=== PATIENT | male | born 1945 | race Caucasian/White ===

== ENCOUNTER 2019-06-26 11:20 | Emergency (ER) | payer MEDICARE, OTHER, SELFPAY ==
[2019-06-26 11:25] VITALS: BP 158/78; PULSE 54; RESP 13; TEMP 36.8; O2SAT 99; BMI 27.1
[2019-06-26 11:27] VITALS: BP 158/78; PULSE 54; RESP 13; TEMP 36.8; O2SAT 99
--- NOTE | 2019-06-26 11:27 | DI.ECHO.S_ITS ---
[facility] +---------+ : : [address] : : : : [id number] : : : : Phone: [phone]+ Echocardiogram Report + + :Name: CARMELA CHRISTIANSEN Study Date: 06/26/2019 Height: 69 in : :[facility] Exam Location: [facility] Weight: 184 lb : : Gender: Male BSA: 2.0 m2 : :: 1945 Age: 74 yrs BP: 161/67 mmHg: :Reason For Study: MN : : Performed By: Issac Mcgovern : :Referring: MARISA JOHNSTON : + + Interpretation Summary The left ventricle is normal in size. The ejection fraction is estimated to be 60-65%. There are no focal wall motion abnormalities. There has been no significant change since the previous study. The right ventricle is normal in size and function. There is mild to moderate aortic regurgitation. Compared to the prior echo study, there has been an increase in the severity of aortic regurgitation. Procedure: A two-dimensional transthoracic echocardiogram with color flow and Doppler was performed. The study quality was technically adequate. Comparison is made with the echocardiogram of 08/31/14. The patient was in sinus bradycardia with heart rates between 50-55 bpm during the exam. Left Ventricle: The left ventricle is normal in size. There is normal left ventricular wall thickness. There is no thrombus. The ejection fraction is estimated to be 60-65%. There has been no significant change since the previous study. There are no focal wall motion abnormalities. Diastolic parameters suggest a relaxation abnormality of the left ventricle, consistent with probable normal filling pressures. Right Ventricle: The right ventricle is normal in size and function. Atria: Both atria are mildly dilated. Both atria have remained unchanged in size since the prior echo exam. The interatrial septum is intact with no evidence for an atrial septal defect. Mitral Valve: The mitral valve is normal in structure and function. There is systolic anterior motion of the chordal apparatus. There is mild mitral regurgitation. Aortic Valve: The aortic valve is trileaflet. The aortic valve opens well. There is mild to moderate aortic regurgitation. Compared to the prior echo study, there has been an increase in the severity of aortic regurgitation. Tricuspid Valve: The tricuspid valve is normal in structure and function. Pulmonary artery pressures cannot be estimated because of the lack of a measurable TR jet velocity. There is trace tricuspid regurgitation. Pulmonic Valve: The pulmonic valve is normal in structure and function. There is trace pulmonic regurgitation. Great Vessels: The aortic root is normal size. The dimensions of the ascending aorta are normal. The pulmonary artery is normal size. The IVC is of normal diameter and collapses greater than 50% with a sniff. This suggests a low right atrial pressure of 3 mm Hg. Pericardium/ Pleura There is no pericardial effusion. There is no pleural effusion. MMode/2D Measurements & Calculations LVIDd: 5.1 cm LVOT diam: 2.1 cm LVIDs: 2.9 cm Ao root diam: 3.3 cm FS: 43.2 % Aortic Jxn: 2.8 cm EPSS: 0.86 cm asc Aorta Diam: 3.3 cm IVSd: 1.1 cm Ao Arch Diam (Prox Trans): 2.6 cm LVPWd: 1.0 cm LV moise. diameter/BSA (cm/m^2): 2.5 LV sys. diameter/BSA (cm/m^2): 1.4 LA dimension: 4.7 cm RA long axis: 5.0 cm LA A2 area: 21.4 cm2 RA area: 21.7 cm2 LA A4 area: 25.6 cm2 RA vol: 79.5 ml LA length (vol): 6.5 cm RA : 39.9 ml/m2 LA vol: 71.2 ml IVC diam: 1.3 cm LA vol index: 35.7 ml/m2 RVD1 (basal): 3.7 cm RVD2 (mid): 3.6 cm Doppler Measurements & Calculations Ao V2 max: 147.8 cm/sec LVOT Max Al: 116.4 cm/sec Ao V2 mean: 90.9 cm/sec LV V1 max P.4 mmHg Ao max P.7 mmHg LV V1 VTI: 26.0 cm Ao mean P.7 mmHg FERNANDO(I,D): 3.0 cm2 Ao V2 VTI: 29.3 cm FERNANDO(V,D): 2.6 cm2 sev ratio: 0.89 FERNANDO indexed to BSA (cm^2/m^2): 1.5 AI P1/2t: 795.5 msec AI dec slope: 159.2 cm/sec2 MV E max al: 62.6 cm/sec PA V2 max: 81.0 cm/sec MV A max al: 70.5 cm/sec PA V2 mean: 61.3 cm/sec MV E/A: 0.89 PA mean P.6 mmHg Med Peak E' Al: 5.3 cm/sec PA pr(Accel): 39.1 mmHg E/E' med: 11.9 PA Accel Time: 0.07 sec Lat Peak E' Al: 7.0 cm/sec E/E' lat: 8.9 E/e' average: 10.4 MV dec time: 0.20 sec SV([facility]): 87.3 ml Reading Physician:01:01 PM
--- NOTE | 2019-06-26 11:29 | ED_ITS ---
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 Patient states he just felt very fatigued and tired and slept the entire day. He noted he had a little bit of epigastric discomfort for the last couple days. As well as some discomfort in between his scapula in his back. He states it is not present today. Patient states that he had similar symptoms a couple years ago had multiple workups then eventually his heart attack. After he was treated for his heart attack though symptoms resolved. He denies any shortness of breath, he denies any chest pr essure. He denies any pain or discomfort down his arms or into his neck. He states symptoms do not change with. He did feel nauseated last day, he did get a little diaphoretic. He denies any emesis. He did feel lightheaded. He tried an oxycodone E left over from a prior surgery symptoms went away for an hour and then came back. 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 Related Data Home Medications Medication Instructions Recorded Confirmed citalopram 20 mg PO DAILY 06/26/19 metoprolol tartrate 12.5 mg PO BID 06/26/19 06/26/19 rosuvastatin 40 mg PO DAILY 06/26/19 06/26/19 Allergies Allergy/AdvReac Type Severity Reaction Status Date / Time Sulfa (Sulfonamide Allergy Unknown Verified 06/26/19 11:31 Antibiotics) Review of Systems Review of Systems ROS Unobtainable: All systems reviewed & are unremarkable except as noted in HPI and below Constitutional Constitutional: Reports anorexia, Denies chills, Denies fever(s), Denies lethargy and Denies weakness Cardiovascular Cardiovascular: Denies chest pain, Reports diaphoresis, Denies syncope, Denies pedal edema, Denies irregular heart rhythm, Denies lightheadedness, Denies radiating jaw, neck or arm pain (midscapular discomfrot), Denies palpitations, Denies dyspnea, Denies dyspnea on exertion and Denies orthopnea Respiratory Respiratory: Denies change in phlegm color, Denies chest congestion, Denies cough, Denies dyspnea, Denies dyspnea on exertion and Denies wheezing Gastrointestinal Gastrointestinal: Denies abdominal pain, Denies melena, Denies hematochezia, Denies change in bowel habits, Denies constipation, Denies diarrhea, Reports nausea (yesterday) and Denies vomiting Genitourinary Genitourinary: Denies hematuria, Denies flank pain, Denies urinary frequency, Denies urinary incontinence and Denies urinary urgency Musculoskeletal Musculoskeletal: Reports back pain (not present now.) Integumentary/Breasts Skin/Breast: Denies rash Neurologic Neurologic: Denies syncope and Denies weakness Endocrine Endocrine: Denies palpitations Allergic/Immunologic Allergic/Immunologic: Denies wheezing [facility] Social History (Updated 06/26/19 @ 11:44 by Wanda Damon DO) Smoking Status: Never smoker substance use type: does not use Social History (Updated 06/26/19 @ 11:44 by Wanda Damon DO) Smoking Status: Never smoker substance use type: does not use Exam Narrative Exam Narrative: GENERAL: Alert and oriented x three, well-nourished, well- appearing male in no acute distress. HEENT: Head normocephalic, atraumatic, EOMI, pupils reactive, face symmetric, moist mucous membranes NECK: Supple, full range of motion CARDIOVASCULAR: Regular rate and rhythm without murmurs, rubs or gallops. None reproducible chest pain. RESPIRATORY: Breath sounds equal bilaterally, no wheezes rales or rhonchi. ABDOMEN: Soft, nontender. Normoactive bowel sounds all 4 quadrants. No guarding or rebound, rigidity, no mass : No CVA tenderness EXTREMITIES: Normal range of motion, no clubbing or edema. 2+ pulses bilateral lower extremities. Neurovascularly intact NEUROLOGICAL: Cranial nerves II through XII grossly intact. Moving all extremities SKIN: Warm, dry, no petechiae, no rashes or lesions. Initial Vital Signs Initial Vital Signs: Vital Signs Temperature 98.3 F 06/26/19 11:25 Pulse Rate 54 L 06/26/19 11:25 Respiratory Rate 13 06/26/19 11:25 Blood Pressure 158/78 H 06/26/19 11:25 Pulse Oximetry 99 06/26/19 11:25 Scores HEART Score Heart Score history: Highly Suspicious Heart Score EKG: Non-Specific repolarization disturbance Heart Score Age: > or = 65 years old Heart Score risk factors: > 3 risk factors or hx of atherosclerotic disease Course Orders Ordered: ED Orders 06/26/19 11:23 EKG-12 Lead Stat 06/26/19 11:27 EC echo doppler complete Stat XR chest 1V Stat 06/26/19 11:35 B Type Natriuretic Peptide Stat Complete Blood Count AUTO DIFF Stat Comprehensive Metabolic Panel Stat Lipase Stat Partial Thromboplastin Time Stat Prothrombin Time INR Stat Troponin & CK Cardiac Panel Stat 06/26/19 13:01 CT angio chest abdomen pelvis Stat 06/26/19 13:24 Urine Microscopic Stat Discontinued Medications Aspirin (Aspirin Chew) 324 mg PO NOW ONE Stop: 06/26/19 11:28 Last Admin: 06/26/19 11:55 Dose: 324 mg Documented by: SJ Sodium Chloride (Normal Saline 0.9%) 1,000 mls @ 150 mls/hr IV CONT LORE Last Infusion: 06/26/19 15:05 Dose: 0 mls/hr Documented by: Admin: 06/26/19 11:54 Dose: 150 mls/hr Documented by: SJ Vital Signs Vital signs: Vital Signs - 8 hr 06/26/19 11:25 06/26/19 11:27 06/26/19 12:33 Temperature 98.3 F 98.3 F Pulse Rate 54 L 54 L 52 L Respiratory Rate 13 13 13 Blood Pressure 158/78 H Blood Pressure [Right Arm] 158/78 H 148/70 H Pulse Oximetry 99 99 97 06/26/19 14:23 06/26/19 14:52 Temperature Pulse Rate 50 L 47 L Respiratory Rate 15 12 Blood Pressure Blood Pressure [Right Arm] 151/70 H 142/72 H Pulse Oximetry 98 97 MDM - Chest Pain Lab Data Attestation: I reviewed the patient's lab results. Result diagrams: 06/26/19 11:35 06/26/19 11:35 Labs: Lab Results 06/26/19 06/26/19 06/26/19 Range/Units 11:35 11:35 11:35 WBC 8.7 (4.5-11.0) X10^3/uL RBC 4.89 (4.5-5.9) X10^6/uL Hgb 14.3 (13.5-17.5) g/dL Hct 40.9 L (41-53) % MCV 83.8 (80-100) fL MCH 29.2 (26-34) PG MCHC 34.9 (30-36) % RDW 13.5 (11.6-14.8) % Plt Count 190 (150-400) X10^3/uL Neut % (Auto) 74.4 (50-75) % Lymph % (Auto) 14.3 L (25-40) % Barren % (Auto) 10.0 (3-14) % Eos % (Auto) 0.6 L (2-4) % Baso % (Auto) 0.7 (0-2) % Neut # (Auto) 6500 (9420-6418) /uL Lymph # (Auto) 1200 (9269-3864) /uL Barren # (Auto) 900 (0-900) /uL Eos # (Auto) 100 (0-450) /uL Baso # (Auto) 100 (0-100) /uL PT 12.8 H (10.1-12.7) SECONDS INR 1.1 (0.9-1.3) APTT 31 (26.4-36.2) SECONDS Sodium 141 (137-145) mmol/L Potassium 4.2 (3.4-5.1) mmol/L Chloride 103 (98-107) mmol/L Carbon Dioxide 29 (22-32) mmol/L BUN 15 (9-20) mg/dL Creatinine 0.70 (0.66-1.25) mg/dL Estimated GFR > 60.0 (>60) mL/min BUN/Creatinine Ratio 21.4 (6-22) Glucose 101 (80-110) mg/dL Calcium 9.2 (8.4-10.2) mg/dL Total Bilirubin 0.8 (0.2-1.3) mg/dL AST 23 (17-59) IU/L ALT < 6 L (21-72) IU/L Alkaline Phosphatase 66 (38-126) U/L Total Creatine Kinase 46 L (55-170) U/L CK-MB (CK-2) TNP CK-MB (CK-2) Rel Index TNP Troponin I < 0.012 (0.01-0.034) ng/mL B-Natriuretic Peptide 176 H (<100) Total Protein 7.9 (6.3-8.2) g/dL Albumin 4.4 (3.5-5.0) g/dL Globulin 3.5 (1.7-4.1) g/dL Albumin/Globulin Ratio 1.3 (1.0-2.8) Lipase 75 (23-300) U/L Urine RBC (0-5/HPF) Urine WBC (0-5/HPF) Urine Bacteria (None) Urine Mucus (Negative) Ur Culture Indicated? 06/26/19 Range/Units 13:24 WBC (4.5-11.0) X10^3/uL RBC (4.5-5.9) X10^6/uL Hgb (13.5-17.5) g/dL Hct (41-53) % MCV (80-100) fL MCH (26-34) PG MCHC (30-36) % RDW (11.6-14.8) % Plt Count (150-400) X10^3/uL Neut % (Auto) (50-75) % Lymph % (Auto) (25-40) % Barren % (Auto) (3-14) % Eos % (Auto) (2-4) % Baso % (Auto) (0-2) % Neut # (Auto) (0101-2930) /uL Lymph # (Auto) (0565-0048) /uL Barren # (Auto) (0-900) /uL Eos # (Auto) (0-450) /uL Baso # (Auto) (0-100) /uL PT (10.1-12.7) SECONDS INR (0.9-1.3) APTT (26.4-36.2) SECONDS Sodium (137-145) mmol/L Potassium (3.4-5.1) mmol/L Chloride (98-107) mmol/L Carbon Dioxide (22-32) mmol/L BUN (9-20) mg/dL Creatinine (0.66-1.25) mg/dL Estimated GFR (>60) mL/min BUN/Creatinine Ratio (6-22) Glucose (80-110) mg/dL Calcium (8.4-10.2) mg/dL Total Bilirubin (0.2-1.3) mg/dL AST (17-59) IU/L ALT (21-72) IU/L Alkaline Phosphatase (38-126) U/L Total Creatine Kinase (55-170) U/L CK-MB (CK-2) CK-MB (CK-2) Rel Index Troponin I (0.01-0.034) ng/mL B-Natriuretic Peptide (<100) Total Protein (6.3-8.2) g/dL Albumin (3.5-5.0) g/dL Globulin (1.7-4.1) g/dL Albumin/Globulin Ratio (1.0-2.8) Lipase (23-300) U/L Urine RBC 1-5/hpf (0-5/HPF) Urine WBC 0-1/hpf (0-5/HPF) Urine Bacteria Few (2-10) H (None) Urine Mucus 1+ H (Negative) Ur Culture Indicated? Cult not indicated Urine Dip Bedside Urine Glucose Negative Bedside Urine Bilirubin - Negative Bedside Urine Ketone - Negative Urine Specific [place] 1.020 Bedside Urine Occult Blood ++ Bedside Urine pH 5.5 Bedside Urine Protein +/- 15 Bedside Urine Urobilinogen - Negative Bedside Urine Nitrite - Negative Bedside Urine Leukocytes - Negative Esterase Imaging Data Chest x-ray: Radiologist's impression: [address] [address] XRay Report Signed Patient: Ross Adler#: [id number] : 6Acct:[id number] Age/Sex: 74 / MDate of Service: 06/26/19 Loc: ED Accession Number: [id number] Procedure: XR chest 1V Ordering Provider: Wanda Damon D.O. PROCEDURE: XR CHEST 1V INDICATIONS: chest pain last night TECHNIQUE: One view of the chest was acquired. COMPARISON: [facility], , XR CHEST 1VW (PORTABLE), 05/19/2016, 20:55. FINDINGS: Surgical changes and devices: None. Lungs and pleura: Lungs are clear. No pleural effusions or pneumothorax. Mediastinum: Mediastinal contours appear normal. Heart size is normal. There is aortic atherosclerosis. Bones and chest wall: No suspicious bony lesions. Overlying soft tissues appear unremarkable. IMPRESSION: Stable chest. No acute cardiopulmonary process is evident. Dictated by: Brendan Fernandez M.D. on 06/26/2019 at 10:52 Approved by: Brendan Fernandez M.D. on 06/26/2019 at 10:53 chest/abd/pelvis angio: Radiologist's impression: [address] [address] [address] Scan Report Signed Patient: Ross Adler#: [id number] : 6Acct:[id number] Age/Sex: 74 / MDate of Service: 06/26/19 Loc: ED Accession Number: [id number] Procedure: CT angio chest abdomen pelvis Ordering Provider: Wanda Damon D.O. PROCEDURE: CT ANGIO CHEST ABDOMEN PELVIS INDICATIONS: epigastric/scapular pain TECHNIQUE: Precontrast 5 mm thick sections acquired from the lung apices to the iliac crests. After the administration of intravenous contrast, 2.5 mm thick sections again acquired from the lung apices to the iliac crests. Maximum intensity projection (MIP) oblique sagittal and coronal reformats were then acquired. For radiation dose reduction, the following was used: automated exposure control. COMPARISON: None. FINDINGS: Image quality: Diagnostic. Arteries: The thoracic and abdominal aorta is normal in course and caliber. There is mild atherosclerosis of the thoracic and abdominal aorta. There is no evidence of aneurysm or dissection. No periaortic hematoma is evident. The arch vessels of the thoracic aorta are widely patent and otherwise unremarkable. The celiac artery, superior mesenteric artery, bilateral renal arteries, and inferior mesenteric artery are all widely patent. However, moderate atherosclerosis with approximately 50% n arrowing involving the lumen of the right renal artery is evident. The bilateral common iliac arteries, internal iliac arteries, and external iliac arteries are widely patent. The imaged portions of the common femoral arteries, superficial femoral arteries, and profunda femoral arteries are patent and otherwise unremarkable. CHEST: Lungs and pleura: No acute airspace opacities. No pleural effusions or pneumothorax. Central and peripheral airways are patent and normal in caliber. No lung masses or definite pulmonary nodules are evident. Mediastinum: Heart size is normal. No pericardial effusion. No mediastinal or hilar adenopathy by size criteria. Central pulmonary arteries are normal in size. No intraluminal filling defects are evident within it the major pulmonary arteries to suggest a large pulmonary embolism. Esophagus is normal in caliber. No hiatal hernias. Bones and chest wall: No axillary adenopathy by size criteria. Thyroid gland is not enlarged or adequately evaluated. No suspicious bony lesions. No vertebral body compression fractures. Mild to moderate degenerative changes of the thoracic spine are present. ABDOMEN: Solid organs: Liver is normal in size and enhancement. Gallbladder is small in size, but otherwise unremarkable. Biliary system is non dilated. Pancreas enhances normally. Spleen is normal in size and enhancement. No adrenal nodules. Both kidneys are normal in size and enhancement, without hydronephrosis. A simple appearing cyst is evident arising from the medial aspect of the mid right kidney. Peritoneum and bowel: No free fluid or air. Bowel loops are normal in caliber and wall thickness. There may be areas of colonic diverticulosis. However, no surrounding inflammation is evident to suggest diverticulitis. What is felt to represent the appendix is normal in size. Nodes and vessels: No retroperitoneal or mesenteric adenopathy by size criteria. Inferior vena cava is normal in morphology. Bones: No acute fracture suspicious osseous lesion is evident. Moderate to severe multilevel degenerative changes of the lumbar spine are more prominent involving the lower lumbar levels. PELVIS: Genitourinary: Thickening of the urinary bladder wall is present. There is no significant enlargement of the prostate gland. Miscellaneous: No pelvic adenopathy is evident. Small bilateral fat containing hernias appear to be present. No ventral hernias. No free fluid or loculated fluid collection is identified. Bones: No suspicious bony lesions. No acute pelvic fractures are identified. Moderate to severe degenerative changes of the pelvic joints are present. IMPRESSION: 1. Mild aortic atherosclerosis without evidence of aneurysm, dissection, high- grade narrowing, or vascular malformation. The major branch vessels of the aorta are widely. 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 2. No acute cardiopulmonary process is evident. 3. No bowel obstruction. 4. Right renal cyst. 5. Small bilateral fat containing inguinal hernias. 6. Prominent degenerative changes of the lumbosacral spine and pelvis. Dictated by: Brendan Fernandez M.D. on 06/26/2019 at 12:59 Approved by: Brendan Fernandez M.D. on 06/26/2019 at 13:12 ECG Data Attestation: I personally reviewed and interpreted this ECG as follows: Prior ECG tracings: available for review Interpretation: Sinus bradycardia, rate of 54 P are 201 QRS of 108 QTC of 432. No ST elevation or depression noted. Patient denies Q-wave in 3 and AVF. Patient has prior from 10/17/14 that appears similar. [facility] Narrative Medical decision making narrative: Patient's symptoms have resolved at this time, he is slightly hypertensive. He normally takes aspirin at night with 324 mg aspirin was ordered this morning. Dr. Stone saw the patient in office this morning and sent here, he reviewed his earlier EKG in the clinic and it was similar to priors with no new changes and I do not appreciate any either. Dr. Stone would like to get troponin cardiac enzymes and echo today, if all negative he would recommend patient to be set up for outpatient stress testing on Saturday which he would be responsible for. If positive plan for transfer to [facility]. Patient's labs do not show any major abnormalities including a negative troponin, negative CK-MB, chest x-ray does not show acute findings the patient's EKG appears similar to prior. He is currently asymptomatic. ECHO was read by Dr. Stone, no acute changes that are concerning. He requests CT to evaluate for dissection which is negative, incidental findings discussed with patient. Dr. Stone has patient scheduled for stress testing on Saturday. Patient to hold BB for 24 hours prior to stress test. Discharge Plan Departure Patient Disposition: Home Clinical Impression: Atypical chest pain Discharge Date/Time: 06/26/19 15:09 Instructions: DI for Atypical Chest Pain Activity Restrictions/Additional Instructions: Follow up Saturday, Dr. Stone is scheduling for stress testing on Saturday. Call this afternoon to verify your time and the location. Dr. Stone asks that you hold your beta roberto or metoprolol for 24 hours prior to your stress test. Continue your home medications as prescribed. There is 50% narrowing of your right renal artery, discuss this with your phys ician. There is a simple cyst on your right kidney, arthritic changes in your back and pelvis and small inguinal hernia's. Return to the emergency department for new or worsening symptoms, recurrent chest pain, shortness of breath, lightheadedness, passing out, nausea or vomiting, persistent sweatiness or clamminess or other new or concerning symptoms. Prescriptions: No Action citalopram 20 mg tablet 20 mg PO DAILY RF: 0 rosuvastatin 40 mg tablet 40 mg PO DAILY RF: 0 metoprolol tartrate 25 mg tablet 12.5 mg PO BID RF: 0 Referrals: Ratna Stone MD [Physician] -
[2019-06-26 11:45] LABS: Add Manual Diff / Slide Review NO; Basophils Absolute Auto 100 /uL (0-100); Basophils Percent Auto 0.7 % (0-2); Eosinophils Absolute Auto 100 /uL (0-450); Eosinophils Percent Auto 0.6 % (2-4); Hematocrit 40.9 % (41-53); Hemoglobin 14.3 g/dL (13.5-17.5); Lymphocytes Absolute Auto 1200 /uL (1100-4500); Lymphocytes Percent Auto 14.3 % (25-40); Mean Corpuscular HGB Conc 34.9 % (30-36); Mean Corpuscular Hemoglobin 29.2 PG (26-34); Mean Corpuscular Volume 83.8 fL (80-100); Monocytes Absolute Auto 900 /uL (0-900); Neutrophils Absolute Auto 6500 /uL (1500-7000); Neutrophils Percent Auto 74.4 % (50-75); Platelet Count 190 X10^3/uL (150-400); Red Blood Cell Count 4.89 X10^6/uL (4.5-5.9); Red Cell Distribution Width 13.5 % (11.6-14.8); White Blood Cell Count 8.7 X10^3/uL (4.5-11.0)
[2019-06-26 11:50] LABS: INR 1.1 (0.9-1.3); Prothrombin Time 12.8 SECONDS (10.1-12.7)
[2019-06-26 11:53] LABS: Albumin 4.4 g/dL (3.5-5.0); Albumin Globulin Ratio 1.3 (1.0-2.8); Alkaline Phosphatase 66 U/L (38-126); Aspartate Aminotransferase 23 IU/L (17-59); BUN Creatinine Ratio 21.4 (6-22); Bilirubin Total 0.8 mg/dL (0.2-1.3); Blood Urea Nitrogen 15 mg/dL (9-20); Calcium 9.2 mg/dL (8.4-10.2); Carbon Dioxide 29 mmol/L (22-32); Chloride 103 mmol/L (98-107); Creatine Kinase 46 U/L (55-170); Estimated Glomerular Filt Rate > 60.0 mL/min (>60); Globulin 3.5 g/dL (1.7-4.1); Glucose 101 mg/dL (80-110); Lipase 75 U/L (23-300); PTT Partial Thromboplastin Tim 31 SECONDS (26.4-36.2); Potassium 4.2 mmol/L (3.4-5.1); Sodium 141 mmol/L (137-145); Total Protein 7.9 g/dL (6.3-8.2)
[2019-06-26] MEDS: SODIUM CHLORIDE 0.9% 1,000 ML 150 ML IV (11:54)
[2019-06-26] MEDS: ASPIRIN 81 MG CHEW TAB 324 MG PO (11:55)
[2019-06-26 12:05] LABS: Alanine Aminotransferase < 6 IU/L (21-72); HEMOLYSIS 36 (0-50); Troponin I < 0.012 ng/mL (0.01-0.034)
[2019-06-26 12:07] LABS: B Type Natriuretic Peptide 176 (<100)
[2019-06-26 12:33] VITALS: BP 148/70; PULSE 52; RESP 13; O2SAT 97
--- NOTE | 2019-06-26 13:01 | DI.CT.S_ITS ---
PROCEDURE: CT ANGIO CHEST ABDOMEN PELVIS INDICATIONS: epigastric/scapular pain TECHNIQUE: Precontrast 5 mm thick sections acquired from the lung apices to the iliac crests. After the administration of intravenous contrast, 2.5 mm thick sections again acquired from the lung apices to the iliac crests. Maximum intensity projection (MIP) oblique sagittal and coronal reformats were then acquired. For radiation dose reduction, the following was used: automated exposure control. COMPARISON: None. FINDINGS: Image quality: Diagnostic. Arteries: The thoracic and abdominal aorta is normal in course and caliber. There is mild atherosclerosis of the thoracic and abdominal aorta. There is no evidence of aneurysm or dissection. No periaortic hematoma is evident. The arch vessels of the thoracic aorta are widely patent and otherwise unremarkable. The celiac artery, superior mesenteric artery, bilateral renal arteries, and inferior mesenteric artery are all widely patent. However, moderate atherosclerosis with approximately 50% narrowing involving the lumen of the right renal artery is evident. The bilateral common iliac arteries, internal iliac arteries, and external iliac arteries are widely patent. The imaged portions of the common femoral arteries, superficial femoral arteries, and profunda femoral arteries are patent and otherwise unremarkable. CHEST: Lungs and pleura: No acute airspace opacities. No pleural effusions or pneumothorax. Central and peripheral airways are patent and normal in caliber. No lung masses or definite pulmonary nodules are evident. Mediastinum: Heart size is normal. No pericardial effusion. No mediastinal or hilar adenopathy by size criteria. Central pulmonary arteries are normal in size. No intraluminal filling defects are evident within it the major pulmonary arteries to suggest a large pulmonary embolism. Esophagus is normal in caliber. No hiatal hernias. Bones and chest wall: No axillary adenopathy by size criteria. Thyroid gland is not enlarged or adequately evaluated. No suspicious bony lesions. No vertebral body compression fractures. Mild to moderate degenerative changes of the thoracic spine are present. ABDOMEN: Solid organs: Liver is normal in size and enhancement. Gallbladder is small in size, but otherwise unremarkable. Biliary system is non dilated. Pancreas enhances normally. Spleen is normal in size and enhancement. No adrenal nodules. Both kidneys are normal in size and enhancement, without hydronephrosis. A simple appearing cyst is evident arising from the medial aspect of the mid right kidney. Peritoneum and bowel: No free fluid or air. Bowel loops are normal in caliber and wall thickness. There may be areas of colonic diverticulosis. However, no surrounding inflammation is evident to suggest diverticulitis. What is felt to represent the appendix is normal in size. Nodes and vessels: No retroperitoneal or mesenteric adenopathy by size criteria. Inferior vena cava is normal in morphology. Bones: No acute fracture suspicious osseous lesion is evident. Moderate to severe multilevel degenerative changes of the lumbar spine are more prominent involving the lower lumbar levels. PELVIS: Genitourinary: Thickening of the urinary bladder wall is present. There is no significant enlargement of the prostate gland. Miscellaneous: No pelvic adenopathy is evident. Small bilateral fat containing hernias appear to be present. No ventral hernias. No free fluid or loculated fluid collection is identified. Bones: No suspicious bony lesions. No acute pelvic fractures are identified. Moderate to severe degenerative changes of the pelvic joints are present. IMPRESSION: 1. Mild aortic atherosclerosis without evidence of aneurysm, dissection, high-grade narrowing, or vascular malformation. The major branch vessels of the aorta are widely. 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 2. No acute cardiopulmonary process is evident. 3. No bowel obstruction. 4. Right renal cyst. 5. Small bilateral fat containing inguinal hernias. 6. Prominent degenerative changes of the lumbosacral spine and pelvis. Dictated by: Brendan Fernandez M.D. on 06/26/2019 at 12:59 Approved by: Brendan Fernandez M.D. on 06/26/2019 at 13:12
[2019-06-26 14:03] LABS: Bacteria Urine Few (2-10); RBC Urine 1-5/HPF (0-5/HPF); WBC Urine 0-1/HPF (0-5/HPF)
[2019-06-26 14:04] LABS: Culture Indicated Urine Cult Not Indicated; Mucus Urine 1+ (Negative)
[2019-06-26 14:23] VITALS: BP 151/70; PULSE 50; RESP 15; O2SAT 98
[2019-06-26 14:52] VITALS: BP 142/72; PULSE 47; RESP 12; O2SAT 97
== END 2019-06-26 15:09 | disposition home or self-care (01) ==
PROVIDERS: Emergency Provider Emergency Medicine
DX: R07.89 Other chest pain (principal)
CPT/HCPCS: 36591; 71045; 71275; 74174; 80053; 81003; 81015; 82550; 83690; 83880; 84484; 85025; 85610; 85730; 93005; 93306; 96360; 96361; 99283; 99285; Q9967

== ENCOUNTER → 2021-07-03 11:42 | Outpatient (CLI) | payer MEDICARE, OTHER, SELFPAY ==
[2021-07-03 12:34] LABS: Bacteria Urine None Seen; WBC Urine None Seen (0-5/HPF)
[2021-07-03 13:11] LABS: Add Manual Diff / Slide Review NO; Basophils Absolute Auto 0 /uL (0-100); Basophils Percent Auto 0.4 % (0-2); Eosinophils Absolute Auto 100 /uL (0-450); Eosinophils Percent Auto 1.2 % (2-4); Hematocrit 39.1 % (41-53); Lymphocytes Absolute Auto 1400 /uL (1100-4500); Lymphocytes Percent Auto 21.1 % (25-40); Mean Corpuscular HGB Conc 33.1 % (30-36); Mean Corpuscular Hemoglobin 28.2 PG (26-34); Mean Corpuscular Volume 85.2 fL (80-100); Monocytes Absolute Auto 600 /uL (0-900); Monocytes Percent Auto 9.5 % (3-14); Neutrophils Absolute Auto 4500 /uL (1500-7000); Neutrophils Percent Auto 67.8 % (50-75); Platelet Count 193 X10^3/uL (150-400); Red Blood Cell Count 4.59 X10^6/uL (4.5-5.9); Red Cell Distribution Width 13.5 % (11.6-14.8); White Blood Cell Count 6.6 X10^3/uL (4.5-11.0)
[2021-07-03 13:18] LABS: Hemoglobin A1C% w Est Avg Glu 5.4 % (4.0-6.0)
[2021-07-03 14:29] LABS: Appearance Urine UA CLEAR; Bilirubin Urine UA NEGATIVE (NEGATIVE); Color Urine UA YELLOW; Glucose Urine UA NEGATIVE (Negative); Ketones Urine UA NEGATIVE (NEGATIVE); Leukocyte Esterase Urine UA NEGATIVE (NEGATIVE); Nitrite Urine UA NEGATIVE (Negative); Occult Blood Urine UA 2+ (Negative); Protein Urine UA NEGATIVE (Negative); Urobilinogen Urine UA 0.2 E.U./dL (0.2); pH Urine UA 6.5 (4.5-8.0)
[2021-07-03 14:40] LABS: Culture Indicated Urine Cult Not Indicated; RBC Urine 5-10/HPF (0-5/HPF)
[2021-07-03 14:41] LABS: BUN Creatinine Ratio 24.2 (6-22); Blood Urea Nitrogen 22 mg/dL (9-20); Calcium 8.7 mg/dL (8.4-10.2); Carbon Dioxide 30 mmol/L (22-32); Chloride 104 mmol/L (98-107); Estimated Glomerular Filt Rate > 60.0 mL/min (>60); Glucose 98 mg/dL (80-110); HEMOLYSIS < 15 (0-50); Potassium 4.7 mmol/L (3.4-5.1); Sodium 138 mmol/L (137-145)
== END ==
PROVIDERS: Referring Provider Orthopaedic Surgery; Visit Provider Orthopaedic Surgery
DX: Z01.818 Encounter for other preprocedural examination (principal); R73.9 Hyperglycemia, unspecified; Z01.812 Encounter for preprocedural laboratory examination; N39.0 Urinary tract infection, site not specified
CPT/HCPCS: 36415; 80048; 81001; 83036; 85025; 93005; 93010

== ENCOUNTER → 2022-11-09 11:58 | Outpatient (CLI) | payer MEDICARE, OTHER, SELFPAY ==
--- NOTE | 2022-11-09 | DI.MRI.S_ITS ---
PROCEDURE: MR SHOULDER RT WO CON INDICATIONS: Primary osteoarthritis, right shoulder TECHNIQUE: Noncontrast oblique coronal T2 fast spin echo with fat saturation, oblique sagittal T1 spin echo and T2 fast spin echo with fat saturation, axial T1 spin echo and T2 fast spin echo with fat saturation through the shoulder. COMPARISON: None. FINDINGS: Image quality: Excellent. Rotator cuff: There is full-thickness tearing with medial retraction and atrophy of the entire supraspinatus and infraspinatus tendons. Subscapularis and teres minor tendons are intact. Bones and bursae: No bone marrow contusions or fractures. Moderate glenohumeral and acromioclavicular joint degeneration. The acromion demonstrates conventional anatomy, without an os acromiale. No pathologic subacromial-subdeltoid or subcoracoid bursal fluid is present. Capsule and soft tissues: Labrum demonstrates diffuse degenerative fraying The long head of the biceps tendon demonstrates normal location and morphology. The rotator interval appears normal, without fibrosis. The coracohumeral ligament is normal in thickness. IMPRESSION: 1. Full-thickness tearing and atrophy of the entire supraspinatus and infraspinatus tendons. 2. Acromioclavicular and glenohumeral joint osteoarthritis. Diffuse degenerative fraying of the glenoid labrum. Dictated by: Guzman Alexis M.D. on 11/09/2022 at 12:58 Transcribed by: CRISTY on 11/09/2022 at 12:59 Approved by: Guzman Alexis M.D. on 11/09/2022 at 16:58
== END ==
PROVIDERS: PCP Family Medicine; Referring Provider Orthopaedic Surgery; Visit Provider Orthopaedic Surgery
DX: M19.011 Primary osteoarthritis, right shoulder (principal); M75.121 Complete rotator cuff tear or rupture of right shoulder, not specified as traumatic
CPT/HCPCS: 73221

== ENCOUNTER → 2022-11-16 10:30 | Outpatient (CLI) | payer MEDICARE, OTHER, SELFPAY ==
[2022-11-16 11:21] LABS: Add Manual Diff / Slide Review NO; Basophils Absolute Auto 0 /uL (0-100); Basophils Percent Auto 0.7 % (0-2); Eosinophils Absolute Auto 100 /uL (0-450); Eosinophils Percent Auto 1.1 % (2-4); Hematocrit 39.9 % (41-53); Hemoglobin 13.5 g/dL (13.5-17.5); Lymphocytes Absolute Auto 1500 /uL (1100-4500); Lymphocytes Percent Auto 22.4 % (25-40); Mean Corpuscular HGB Conc 33.8 % (30-36); Mean Corpuscular Hemoglobin 28.1 PG (26-34); Monocytes Absolute Auto 700 /uL (0-900); Monocytes Percent Auto 10.5 % (3-14); Neutrophils Absolute Auto 4500 /uL (1500-7000); Neutrophils Percent Auto 65.3 % (50-75); Platelet Count 191 X10^3/uL (150-400); Red Blood Cell Count 4.81 X10^6/uL (4.5-5.9); Red Cell Distribution Width 13.8 % (11.6-14.8); White Blood Cell Count 6.9 X10^3/uL (4.5-11.0)
[2022-11-16 11:46] LABS: Blood Urea Nitrogen 27 mg/dL (9-20); Calcium 8.9 mg/dL (8.4-10.2); Carbon Dioxide 30 mmol/L (22-32); Chloride 102 mmol/L (98-107); Estimated Glomerular Filt Rate > 60 mL/min (>60); Glucose 86 mg/dL (80-110); HEMOLYSIS < 15 (0-50); Potassium 4.8 mmol/L (3.4-5.1); Sodium 139 mmol/L (137-145)
== END ==
PROVIDERS: PCP Family Medicine; Referring Provider Orthopaedic Surgery; Visit Provider Orthopaedic Surgery
DX: E11.9 Type 2 diabetes mellitus without complications (principal); Z01.812 Encounter for preprocedural laboratory examination
CPT/HCPCS: 36415; 80048; 85025

== ENCOUNTER → 2022-11-22 08:20 | Outpatient (CLI) | payer MEDICARE, OTHER, SELFPAY ==
--- NOTE | 2022-11-22 | DI.CT.S_ITS ---
PROCEDURE: CT UE RT WO CON INDICATIONS: Primary osteoarthritis, right shoulder TECHNIQUE: Noncontrast 1-1.5 mm thick sections acquired from the acromioclavicular joint to the inferior scapula, with coronal and sagittal reformatting. COMPARISON: [facility] Outside Film, CT, CT SHOULDER RIGHT WITHOUT CONTRAST, 06/20/2022, 11:53. [facility], MR, MR SHOULDER RT WO CON, 11/09/2022, 12:19. FINDINGS: Image quality: Excellent. Bones: No acute fracture or dislocation. Mild degenerative changes are seen at the glenohumeral joint with small marginal osteophytes. No significant glenoid retroversion or anteversion. The humeral head is high riding with narrowing of the acromiohumeral interval to 3 mm. Moderate degenerative changes are seen in the acromioclavicular joint with marginal osteophyte formation. Right-sided ribs are intact. Soft tissues: There is atrophy and fatty infiltration of the supraspinatus and infraspinatus muscles. The musculature surrounding the shoulder is otherwise normal in bulk. The articular cartilages, labrum, ligaments, and tendons are not well evaluated on standard CT. Small glenohumeral effusion. The included portions of the right lung are clear. IMPRESSION: 1. Mild glenohumeral osteoarthrosis and moderate acromioclavicular osteoarthrosis. 2. Humeral head is high riding with narrowing of the acromiohumeral interval. Moderate atrophy and fatty infiltration of the supraspinatus and infraspinatus muscles. Findings are consistent with known underlying rotator cuff tendon tearing. Approved by: Christo Gallegos M.D. on 11/22/2022 at 10:30
== END ==
PROVIDERS: PCP Family Medicine; Referring Provider Orthopaedic Surgery; Visit Provider Orthopaedic Surgery
DX: M19.011 Primary osteoarthritis, right shoulder (principal); M75.101 Unspecified rotator cuff tear or rupture of right shoulder, not specified as traumatic
CPT/HCPCS: 73200

== ENCOUNTER → 2023-12-09 | Outpatient (CLI) | payer MEDICARE, OTHER, SELFPAY ==
--- NOTE | 2023-12-13 02:02 | DI.NM.S_ITS ---
DATE OF SERVICE: 12/09/2023 PROCEDURE: Exercise perfusion study. 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 RADIOPHARMACEUTICAL: 24.9 millicurie technetium-99m Myoview IV was injected at stress and 25.6 millicurie technetium-99m Myoview IV was injected at rest. CARDIAC STRESS: Patient underwent exercise perfusion study under the supervision of an attending staff. He walked on Shree protocol for 11 minutes and achieved a maximum heart rate of 144 with target heart rate 136 beats per minute. Resting blood pressure 140/62 and peak blood pressure 186/98. NIYA -80%. Baseline rhythm, sinus with QS complexes in V1 to V3 with poor R-wave progression, consistent with old anterior septal DE. Q waves seen in lead L3, aVF as well. During stress, no new convincing ischemic changes. No significant arrhythmias or obvious anginal symptoms. RAW DATA: There is increased subdiaphragmatic activity. GATED STUDY: Stress LV ejection fraction 78% and resting LV ejection fraction 70% without any obvious wall motion abnormalities. Resting end- diastolic volume 105 mL. TID ratio 0.83, which is within normal limits. Lung/heart ratio 0.23, which is within normal limits. MYOCARDIAL PERFUSION SCAN: Stress supine, resting supine and stress prone images were compared to each other. Stress supine and resting supine images revealed moderate to severely decreased perfusion of distal anterior septum which partially resolved during stress prone images. Stress prone images revealed mildly decreased perfusion of distal anterior septum. CONCLUSION: This is a mildly abnormal study with old distal anteroseptal DE without any reversible ischemia. Excellent exercise capacity. Patient walked on Shree protocol for 11 minutes. NIYA -80%. Peak blood pressure 186/98 mmHg. No obvious significant arrhythmias or anginal symptoms. Preserved LV function. Overall, low-risk exercise perfusion scan. Christopher Adler - CONE WINDER/alba/ec doc#: [id number]/job#: [id number] dd: 12/12/2023 17:17:00 dt: 12/13/2023 01:42:00 DICTATING MD/COPIES TO: Ratna Stone MD COPIES MNE: PATEL;
== END ==
PROVIDERS: PCP Family Medicine; Referring Provider Nurse Practitioner; Visit Provider Nurse Practitioner
DX: I25.10 Atherosclerotic heart disease of native coronary artery without angina pectoris (principal); R94.39 Abnormal result of other cardiovascular function study; I25.2 Old myocardial infarction; R01.1 Cardiac murmur, unspecified; I10 Essential (primary) hypertension; E78.5 Hyperlipidemia, unspecified; Z95.5 Presence of coronary angioplasty implant and graft
CPT/HCPCS: 78452; 93017; A9502

== ENCOUNTER → 2024-01-27 07:47 | Outpatient (CLI) | payer MEDICARE, OTHER, SELFPAY ==
--- NOTE | 2024-01-27 07:51 | DI.ECHO.S_ITS ---
[place] +---------+ [facility] +---------+ : : [address] : : : : [id number] : : : : Phone: [phone]+ Echocardiogram Report + + :Name: CARMELA CHRISTIANSEN Study Date: 01/27/2024 Height: 69 in : :[facility] ReadingLocation: Weight: 190 lb : : Gender: Male BSA: 2.0 m2 : :: 1945 Age: 78 yrs BP: 165/79 mmHg: :Reason For Study: MURMUR : :Ordering Physician: RYLEE, : :NISSA Conklin Performed By: Dajuan Mary : :Referring: NISSA MCKEE : + + Interpretation Summary Normal left ventricle size with ejection fraction 60-65%. The left atrium is moderately dilated. The aortic valve is mildly calcified. Mild aortic regurgitation. Comparison is made with the echocardiogram of 07/06/2019, no significant change. Procedure: A two-dimensional transthoracic echocardiogram with color flow and Doppler was performed. The study quality was technically adequate. Comparison is made with the echocardiogram of 07/06/2019. The patient was in normal sinus rhythm during the exam. The heart rate ranged between 52-60 bpm during the study. Left Ventricle: The left ventricle is normal in size and wall thickness. The ejection fraction is estimated to be 60-65%. There are no focal wall motion abnormalities. Right Ventricle: The right ventricle is normal in size and function. Atria: The left atrium is moderately dilated. Borderline right atrial enlargement. The interatrial septum grossly appears intact with no obvious evidence for an atrial septal defect. Mitral Valve: The mitral valve is normal in structure and function. There is no mitral valve stenosis. There is trace mitral regurgitation. Aortic Valve: The aortic valve is trileaflet. The aortic valve is mildly calcified. There is no aortic valve stenosis. There is mild aortic regurgitation. Tricuspid Valve: The tricuspid valve is normal in structure and function. There is no tricuspid stenosis. No tricuspid regurgitation. Pulmonic Valve: The pulmonic valve is not well visualized. There is no pulmonic valvular stenosis. There is no pulmonic valvular regurgitation. Great Vessels: The aortic root is normal size. The dimensions of the ascending aorta are normal. The IVC is of normal diameter and collapses greater than 50% with a sniff. This suggests a low right atrial pressure of 3 mm Hg. Pericardium/ Pleura There is no pericardial effusion. There is no pleural effusion. MMode/2D Measurements & Calculations LVIDd: 5.2 cm LVOT diam: 2.5 cm LVIDs: 3.8 cm Ao root diam: 3.2 cm FS: 26.6 % asc Aorta Diam: 2.8 cm IVSd: 1.1 cm Ao Arch Diam (Prox Trans): 2.6 cm LVPWd: 1.0 cm LV moise. diameter/BSA (cm/m^2): 2.6 LV sys. diameter/BSA (cm/m^2): 1.9 LA A2 area: 25.2 cm2 RA long axis: 4.8 cm LA A4 area: 24.7 cm2 RA area: 19.3 cm2 LA length (vol): 6.2 cm RA vol: 65.3 ml LA vol: 86.0 ml RA : 32.3 ml/m2 LA vol index: 42.5 ml/m2 IVC diam: 1.8 cm RVD1 (basal): 3.9 cm RVD2 (mid): 3.0 cm TAPSE: 2.7 cm Doppler Measurements & Calculations Ao V2 max: 148.4 cm/sec LVOT Max Al: 127.4 cm/sec Ao V2 mean: 96.7 cm/sec LV V1 max P.5 mmHg Ao max P.8 mmHg LV V1 VTI: 28.4 cm Ao mean P.2 mmHg FERNANDO(I,D): 4.1 cm2 Ao V2 VTI: 32.8 cm FERNANDO(V,D): 4.1 cm2 sev ratio: 0.87 FERNANDO indexed to BSA (cm^2/m^2): 2.0 AI P1/2t: 633.1 msec AI dec slope: 179.6 cm/sec2 MV E max al: 64.9 cm/sec PA V2 max: 107.3 cm/sec MV A max al: 79.8 cm/sec PA V2 mean: 73.1 cm/sec MV E/A: 0.81 PA mean P.4 mmHg Med Peak E' Al: 5.5 cm/sec PA pr(Accel): 15.6 mmHg E/E' med: 11.9 Lat Peak E' Al: 8.5 cm/sec E/E' lat: 7.7 E/e' average: 9.8 MV dec time: 0.17 sec SV(LVOT): 134.1 ml Electronically signed by: Mary Hernandez on Reading Physician:01/27/2024 02:41 PM
== END ==
LOC: ECHO 07:49
PROVIDERS: PCP Family Medicine; Referring Provider Nurse Practitioner; Visit Provider Nurse Practitioner
DX: I35.1 Nonrheumatic aortic (valve) insufficiency (principal); R01.1 Cardiac murmur, unspecified
CPT/HCPCS: 93306

== ENCOUNTER → 2025-07-13 11:49 | Outpatient (CLI) | payer MEDICARE, OTHER, SELFPAY ==
--- NOTE | 2025-07-15 17:19 | DI.NM.S_ITS ---
DATE OF SERVICE: 07/13/2025 PHARMACOLOGICAL PERFUSION STUDY INDICATIONS: History of chest pain with underlying LAD and RCA stent in the past. RADIOPHARMACEUTICAL: 26.5 millicurie technetium-99m Myoview IV was injected at stress and 27.5 millicurie technetium-99m Myoview IV was injected at rest. CARDIAC STRESS: The patient underwent IV Lexiscan perfusion study under the supervision of an attending staff using standard intravenous Lexiscan as per protocol. Baseline rhythm was sinus with left anterior fascicular block and QRS complexes in V1 to V2. During stress, no new convincing ischemic changes seen. No significant arrhythmias. No chest pain. Had minimal dyspnea. RAW DATA: There is increased subdiaphragmatic activity. GATED STUDY: Stress LV ejection fraction 80 and rest LV ejection fraction 73% without any obvious wall motion abnormalities. Resting end- diastolic volume 86 mL. TID ratio 0.90, which is within normal limits. Lung/heart ratio 0.30, which is within normal limits. MYOCARDIAL PERFUSION SCAN: Stress supine, resting supine and stress prone images were compared to each other. Stress supine and resting supine images revealed small size, moderate to severely decreased perfusion of distal anteroseptum which got partially resolved during stress prone images. No obvious reversible ischemia. CONCLUSION: 1. No obvious reversible ischemia. 2. Small size distal anteroseptal infarction which was seen on previous perfusion scan of November 2023 as well. Preserved LV function. No chest pain during Lexiscan infusion. No new ischemic EKG changes. Overall, low-risk myocardial perfusion scan. Christopher Adler - MENDOZA/alba/VIKAS doc#: [id number]/job#: [id number] dd: 07/15/2025 16:48:00 dt: 07/15/2025 17:08:00 DICTATING MD/COPIES TO: Ratna Stone MD COPIES MNE: PATEL;
== END ==
PROVIDERS: PCP Family Medicine; Referring Provider Internal Medicine Cardiovascular Disease; Visit Provider Internal Medicine Cardiovascular Disease
DX: R07.89 Other chest pain (principal); Z95.5 Presence of coronary angioplasty implant and graft
CPT/HCPCS: 78452; 93017; A9502; J2785

== ENCOUNTER → 2025-07-15 12:38 | Outpatient (CLI) | payer MEDICARE, OTHER, SELFPAY ==
--- NOTE | 2025-07-15 12:39 | DI.ECHO.S_ITS ---
[place] +---------+ [facility] : : [address] : : [id number] : : Phone: [phone] Echocardiogram Report + + :Name: CARMELA CHRISTIANSEN Study Date: 07/15/2025 Height: 69 in : :[facility] ReadingLocation: Weight: 192 lb : : Gender: Male BSA: 2.0 m2 : :: 1945 Age: 80 yrs BP: 151/85 mmHg: :Reason For Study: SHORTNESS OF BREATH : :Ordering Physician: ARNAUD, : :DANIELE Performed By: Dajuan Mary : :Referring: DANIELE LARES : + + Interpretation Summary The left ventricle is normal in size. The left ventricular ejection fraction is normal. The ejection fraction is estimated to be 60-65%. The right ventricle is normal in size and function. There is mild to moderate aortic regurgitation. Previously mild AR. The IVC is of normal diameter and collapses greater than 50% with a sniff. This suggests a low right atrial pressure of 3 mm Hg. BP: 151/85 mmHg Procedure: A two-dimensional transthoracic echocardiogram with color flow and Doppler was performed. The study quality was technically adequate. Comparison is made with the echocardiogram of 01/27/2024. The patient was in normal sinus rhythm during the exam. Left Ventricle: The left ventricle is normal in size. Left ventricular wall thickness is mildly increased. There is no thrombus. The ejection fraction is estimated to be 60-65%. The left ventricular ejection fraction is normal. There are no focal wall motion abnormalities. Diastolic parameters suggest a relaxation abnormality of the left ventricle, consistent with probable normal filling pressures. Right Ventricle: The right ventricle is normal in size and function. Atria: The left atrium is mildly dilated. The left atrium has mildly decreased in size since the prior echo exam. The right atrium is mildly dilated. There is no Doppler evidence for an interatrial shunt. Mitral Valve: There is mild to moderate mitral annular calcification. There is mild mitral regurgitation. Aortic Valve: The aortic valve is slightly calcified. The aortic valve is not well visualized. There is no aortic valve stenosis. There is mild to moderate aortic regurgitation. Tricuspid Valve: The tricuspid valve leaflets are thin and pliable. No tricuspid regurgitation. Pulmonic Valve: The pulmonic valve is not well seen, but is grossly normal. There is trace pulmonic regurgitation. Great Vessels: The aortic root is normal size. The dimensions of the ascending aorta are normal. The pulmonary artery is normal size. The IVC is of normal diameter and collapses greater than 50% with a sniff. This suggests a low right atrial pressure of 3 mm Hg. Pericardium/ Pleura There is no pericardial effusion. There is no pleural effusion. MMode/2D Measurements & Calculations LVIDd: 5.2 cm LVOT diam: 2.2 cm LVIDs: 3.5 cm Ao root diam: 3.4 cm FS: 32.3 % asc Aorta Diam: 3.1 cm EPSS: 0.55 cm IVSd: 1.1 cm LVPWd: 1.0 cm LV moise. diameter/BSA (cm/m^2): 2.6 LV sys. diameter/BSA (cm/m^2): 1.7 LA A2 area: 19.0 cm2 RA long axis: 5.8 cm LA A4 area: 24.8 cm2 RA area: 21.6 cm2 LA length (vol): 6.0 cm RA vol: 67.8 ml LA vol: 66.6 ml RA : 33.4 ml/m2 LA vol index: 32.8 ml/m2 IVC diam: 1.6 cm RVD1 (basal): 3.7 cm RVD2 (mid): 2.8 cm TAPSE: 2.4 cm Doppler Measurements & Calculations Ao V2 max: 176.2 cm/sec LVOT Max Al: 122.8 cm/sec Ao V2 mean: 118.2 cm/sec LV V1 max P.0 mmHg Ao max P.4 mmHg LV V1 VTI: 29.3 cm Ao mean P.4 mmHg FERNANDO(I,D): 2.8 cm2 Ao V2 VTI: 39.1 cm FERNANDO(V,D): 2.6 cm2 sev ratio: 0.75 FERNANDO indexed to BSA (cm^2/m^2): 1.4 AI P1/2t: 618.0 msec AI dec slope: 207.9 cm/sec2 MV E max al: 43.2 cm/sec SV(LVOT): 111.3 ml MV A max al: 71.0 cm/sec MV E/A: 0.61 Med Peak E' Al: 4.3 cm/sec E/E' med: 10.1 Lat Peak E' Al: 5.4 cm/sec E/E' lat: 8.0 E/e' average: 9.1 MV dec time: 0.20 sec Reading Physician:12:30 PM
== END ==
LOC: ECHO 12:38
PROVIDERS: PCP Family Medicine; Referring Provider Internal Medicine Cardiovascular Disease; Visit Provider Internal Medicine Cardiovascular Disease
DX: I08.0 Rheumatic disorders of both mitral and aortic valves (principal); R07.89 Other chest pain; R06.02 Shortness of breath; Z95.5 Presence of coronary angioplasty implant and graft
CPT/HCPCS: 93306

== ENCOUNTER → 2025-07-21 12:46 | Outpatient (CLI) | payer MEDICARE, OTHER, SELFPAY | LOC: RESP 12:46 | PROVIDERS: PCP Family Medicine; Referring Provider Internal Medicine Cardiovascular Disease; Visit Provider Internal Medicine Cardiovascular Disease | DX: R06.02 Shortness of breath (principal); R07.89 Other chest pain; R94.2 Abnormal results of pulmonary function studies | CPT/HCPCS: 94060; 94726; 94729 ==